=== PATIENT | female | born 1995 | race Caucasian/White ===

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

== ENCOUNTER 2017-04-23 18:57 | Emergency (ER) | payer BC ==
[2017-04-23 19:17] VITALS: BMI 24.4
--- NOTE | 2017-04-23 19:19 | ED PDOC ---
Arrival/HPI - General Time Seen by Provider: 04/23/17 19:19 Historian: Patient - History of Present Illness Narrative History of Present Illness (Text): 04/23/17 19:47 22 yo female come in for evaluation of lower back pain for past 2 months. Pt reports, "pain started after someone fell on my back and I fell down 2 months ago". Pt reports, pain is localized over lower back, non-radiating and worse with movement. Pt admits, pain worsen for past few days. Pt use Aspirin for pain without significant improvement. Otherwise, pt denies fever, chills, abd. pain, N/V/D, saddle anesthesia, UTI sx, incontinence, denies weakness, sensory or vascular deficits to B/L LEs. Ambulate to ED for evaluation, not in any apparent distress. Past Medical History - Provider Review Nursing Documentation Reviewed: Yes - Travel History Have you recently traveled outside [place] w/in the past 3 mons?: No - Past History Past History: No Previous - Tetanus Immunization Tetanus Immunization: Unknown Family/Social History - Physician Review Nursing Documentation Reviewed: Yes Family/Social History: No Known Family HX Allergies/Home Meds Allergies/Adverse Reactions: Allergies No Known Allergies Allergy (Verified 04/23/17 19:17) Review of Systems - Review of Systems Constitutional: Normal Eyes: Normal ENT: Normal Respiratory: Normal Cardiovascular: Normal Gastrointestinal: Normal. absent: Abdominal Pain, Nausea, Vomiting, Hematemesis Genitourinary Female: Normal. absent: Dysuria, Frequency Musculoskeletal: Back Pain Skin: Normal Neurological: Normal Endocrine: Normal Hemo/Lymphatic: Normal Psychiatric: Normal Physical Exam Vital Signs Reviewed: Yes Vital Signs Temp Pulse Resp BP Pulse Ox 04/23/17 19:25 98.0 F 82 18 125/79 100 Temperature: Afebrile Blood Pressure: Normal Pulse: Regular Respiratory Rate: Normal Appearance: Positive for: Well-Appearing, Non-Toxic, Comfortable Pain Distress: Moderate Mental Status: Positive for: Alert and Oriented X 3 - Systems Exam Head: Present: Normocephalic Conjunctiva: Present: Normal Mouth: Present: Moist Mucous Membranes Neck: Present: Trachea Midline. No: MIDLINE TENDERNESS Respiratory/Chest: Present: Clear to Auscultation, Good Air Exchange. No: Respiratory Distress, Accessory Muscle Use Cardiovascular: Present: Regular Rate and Rhythm, Normal S1, S2. No: Murmurs Abdomen: Present: Normal Bowel Sounds. No: Tenderness, Distention, Peritoneal Signs, Rebound, Guarding Back: Present: Paraspinal Tenderness (diffuse Right sided lumbar extend to Right flank area. No midline tendeness, no skin changes. NO palpable deformity.) . No: CVA Tenderness, Midline Tenderness Upper Extremity: Present: Normal ROM. No: Cyanosis, Edema, Deformity Lower Extremity: Present: NORMAL PULSES, Normal ROM, Neurovascularly Intact. No : Edema, CALF TENDERNESS, Tenderness, Swelling, Deformity Neurological: Present: GCS=15, Speech Normal, Motor Func Grossly Intact, Normal Sensory Function, Norm Deep Tendon Reflexes, Gait Normal Skin: Present: Warm, Dry, Normal Color. No: Rashes Psychiatric: Present: Alert, Oriented x 3 Medical Decision Making ED Course and Treatment: 04/23/17 19:55 On re-evaluation, pt is afebrile, hemodynamicaly stable. Non-toxic. Ambulatory in ED with stable gait. ENT: no acute findings ABd: benign, (-) guarding, (-) rebound. back: (-) CVA tenderness. Neurologicaly intact. Imaging of L-spine review- no acute findings. UA- normal study. Pt has clinical findings c/w back strain. Pt advised . ref. to F/u with PMD in 2-3 days for re-eval. return to ED if any worsening or new changes. - Lab Interpretations Lab Results: Lab Results 04/23/17 19:27: Urine Color Yellow, Urine Appearance Clear, Urine pH 7.0, Ur Specific [place] 1.020, Urine Protein Negative, Urine Glucose (UA) Negative, Urine Ketones Negative, Urine Blood Negative, Urine Nitrate Negative, Urine Bilirubin Negative, Urine Urobilinogen 0.2, Ur Leukocyte Esterase Negative, Urine HCG, Qual Negative I have reviewed the lab results: Yes Interpretation: All labs normal - RAD Interpretation Radiology Orders: 04/23/17 19:31 LS SPINE AP/LAT [RAD] Stat (-) acute fx or sublux noted - Medication Orders Current Medication Orders: Discontinued Medications Prednisone (Prednisone Tab) 60 mg PO STAT ONE Stop: 04/23/17 19:52 Tramadol HCl (Ultram) 50 mg PO STAT STA Stop: 04/23/17 19:52 Disposition/Present on Arrival - Present on Arrival Any Indicators Present on Arrival: Yes - Disposition Have Diagnosis and Disposition been Completed?: Yes Diagnosis: Lumbar strain, Back pain Disposition: HOME/ ROUTINE Disposition Time: 20:14 Patient Plan: Discharge Patient Problems: Current Active Problems Problem Status Onset Lumbar strain Acute Back pain Acute Condition: STABLE Discharge Instructions (ExitCare): Back Pain (ED) Additional Instructions: LIGHT DUTY TO LOWER BACK,A VOID HEAVY LIFTING, BENDING FOR 1 MONTH AVOID ANY PHYSICAL ACTIVITY FOR 1-2 WEEKS TAKE MEDICATION PRESCRIBED FOLLOW UP WITH PMD IN 2-3 DAYS FOR RE-EVALUATION. RETURN TO ED IF ANY WORSENING OR NEW CHANGES. Prescriptions: Ibuprofen [Motrin] 1 tab PO TID PRN #20 tab PRN Reason: Pain Methocarbamol [Robaxin] 500 mg PO TID #14 tab Prednisone [Deltasone] 40 mg PO DAILY #6 tablet Referrals: Kvng Lee DO [Primary Care Provider] - Follow up with primary
[2017-04-23 19:26] VITALS: BP 125/79; PULSE 82; RESP 18; TEMP 98; O2SAT 100
[2017-04-23 19:49] LABS: URINE APPEARANCE CLEAR (CLEAR); URINE BILIRUBIN NEGATIVE (NEGATIVE); URINE BLOOD NEGATIVE (NEGATIVE); URINE COLOR YELLOW (YELLOW); URINE GLUCOSE (UA) NEGATIVE (NEGATIVE); URINE KETONE NEGATIVE (NEGATIVE); URINE LEUKOCYTE ESTERASE NEGATIVE Leu/uL (NEGATIVE); URINE PROTEIN NEGATIVE mg/dL (<30 mg/dL); URINE UROBILINOGEN 0.2 E.U./dL (<1 E.U./dL)
--- NOTE | 2017-04-24 09:56 | RAD ---
PROCEDURE: Radiographs of the Lumbar Spine. HISTORY: pain, injury 2 months ago COMPARISON: No prior. FINDINGS: BONES: No acute compression fractures no retropulsed fragments. Vertebral bodies exhibit normal stature. There is very subtle levoscoliosis centered in the lower lumbar region ; rule out patient positioning versus spasm versus true scoliosis. There is also straightening of the normal lumbar lordosis. DISC SPACES: Disc space heights relatively maintained. OTHER FINDINGS: Moderately large amount of stool seen within the cecum and ascending colon suggesting mild fecal retention. IMPRESSION: No acute fractures.
== END 2017-04-23 20:28 | disposition home or self-care (01) ==
LOC: ED 18:57
DX: S39.012A Strain of muscle, fascia and tendon of lower back, initial encounter (principal); X58.XXXA Exposure to other specified factors, initial encounter; Y92.9 Unspecified place or not applicable